=== PATIENT | male | born 1990 | race Two or more races ===

== ENCOUNTER → 2022-01-08 | Outpatient (REF) | LOC: M LABSMTC 09:24 | PROVIDERS: ATTEND Family Medicine | DX: Z20.822 Contact with and (suspected) exposure to COVID-19 (principal) ==

== ENCOUNTER → 2022-06-24 | Outpatient (REF) | LOC: M LABSMTC 10:04 | PROVIDERS: ATTEND Family Medicine | DX: Z11.52 Encounter for screening for COVID-19 (principal) ==